=== PATIENT | male | born 1945 | race African-American/Black ===

== ENCOUNTER 2025-06-02 09:33 | Outpatient (CLI) | payer MEDICARE ==
[2025-06-02 11:25] LABS: Estimated GFR - POC 55.0
[2025-06-02] MEDS ORDERED: Iopamidol 300 61% 100 ML VIAL FS ONE (13:46)
== END 2025-06-02 09:34 | disposition home or self-care (01) ==
LOC: CSHCT 09:33
PROVIDERS: ATTEND Urology
DX: C64.1 Malignant neoplasm of right kidney, except renal pelvis (principal); Z98.890 Other specified postprocedural states; N28.1 Cyst of kidney, acquired; K80.20 Calculus of gallbladder without cholecystitis without obstruction; Z90.49 Acquired absence of other specified parts of digestive tract; K59.00 Constipation, unspecified
CPT/HCPCS: 36415; 71046; 74177; 82565